=== PATIENT | male | born 1935 | race Caucasian/White ===

== ENCOUNTER 2019-08-09 08:32 | Outpatient (CLI) | payer MEDICARE ==
[~2019-08-09] VITALS: Ht 177.8 cm; Wt 95.3 kg
[2019-08-09] MEDS ORDERED: albuterol 2.5 MG/3 ML nebule ONE (09:34)
[2019-08-09] MEDS ORDERED: iohexol 350MG/ML 100ml bottle IV ONE (11:21)
== END 2019-08-09 23:59 | disposition home or self-care (01) ==
LOC: RT 08:32
PROVIDERS: ATTEND Internal Medicine
DX: R06.02 Shortness of breath (principal)
CPT/HCPCS: 85018; 94060; 94727; 94729; 94760; Q9967